=== PATIENT | male | born 1970 | race Caucasian/White ===

== ENCOUNTER 2017-09-12 07:52 | Inpatient (IN) ==
[2017-09-12 08:39] LABS: Bilirubin,Urine Negative (Negative); Blood,Urine Small (Negative); Clarity,Urine Clear (Clear); Color,Urine Yellow (Yellow); Glucose,Urine (UA) 500 mg/dL (Normal); Ketones,Urine Negative (Negative); Leukocyte Esterase,Urine Negative (Negative); Nitrite,Urine Negative (Negative); PH,Urine 5.5 pH Units (5.0-8.0); Protein,Urine Negative (Neg-Trace); Specific Gravity,Urine 1.023 (1.010-1.025); Urobilinogen,Urine Normal (Normal)
[2017-09-12 08:41] LABS: Bacteria,Urine None Seen per hpf (None-Few); Hyaline Casts,Urine None Seen per lpf (None-Few); Squamous Epithelial Cell,Urine Few per lpf (None-Few); WBC,Urine 0-3 per hpf (0-3)
[2017-09-12 08:46] LABS: Amphetamine Screen,Urine Positive ng/mL (Cutoff=1000); Barbiturate Screen,Urine Negative ng/mL (Cutoff=200); Benzodiazepines Screen,Urine Negative ng/mL (Cutoff=200); Cannabinoid Screen,Urine Positive ng/mL (Cutoff = 50); Cocaine Screen,Urine Negative ng/mL (Cutoff= 300); Opiate Screen,Urine Positive ng/mL (Cutoff=300); Phencyclidine Screen,Urine Negative ng/mL (Cutoff=25)
[2017-09-12 09:06] LABS: Basophils % 0.5 %; Eosinophils # 0.2 K/mcL (0.0-0.6); Hematocrit 42.7 % (37.5-50.1); Hemoglobin 14.4 g/dL (12.9-16.9); Immature Granulocytes % 0.1 % (0-4); Lymphocytes # 3.7 K/mcL (0.6-4.6); Lymphocytes % 43.6 %; Mean Corpuscular HGB Conc 33.7 g/dL (31.6-35.5); Mean Corpuscular Hemoglobin 28.9 pg (28.0-33.3); Mean Corpuscular Volume 85.6 fL (83.0-100.0); Mean Platelet Volume 8.9 fL (9.4-12.4); Monocytes # 0.6 K/mcL (0.0-1.3); Monocytes % 6.7 %; Platelet Count 199 K/mcL (140-400); Red Blood Count 4.99 M/mcL (4.19-5.50); Red Cell Distribution Width 12.3 % (11.5-14.5); Segmented Neutrophils % 47.1 %
[2017-09-12 09:21] LABS: Ethanol < 10 mg/dL (0-10); Salicylate < 5.0 mg/dL (15.0-30.0)
[2017-09-12 09:25] LABS: BUN/Creatinine Ratio 20 (6-26); Blood Urea Nitrogen 14 mg/dL (6-20); Calcium 8.9 mg/dL (8.6-10.3); Carbon Dioxide 28 mEq/L (23-29); Chloride 103 mEq/L (98-107); Glucose 110 mg/dL (70-105); Osmolality,Calculated 281 (280-300); Potassium 3.5 mEq/L (3.5-5.1); Sodium 135 mEq/L (136-145); eGFR For African Americans > 60 (> 60); eGFR For Non-African Americans > 60 (> 60)
--- NOTE | 2017-09-12 09:38 | Emergency Department Note ---
Disposition Clinical Impression: Suicidal ideation Disposition: Admitted As Inpatient Condition: Fair Time of Disposition: 13:16 Psych HPI - General Chief Complaint: ED Psychiatric Symptoms Stated Complaint: SI Time Seen by Provider: 09/12/17 08:23 Source: patient Nursing Notes Reviewed: Yes Vital Signs Reviewed: Yes - History of Present Illness HPI Narrative: Patient does have suicidal ideations and a plan was is to put a plan of his mouth and kill himself. He has put a gun under his chin and also in his mouth but is not the trigger. He has contemplated suicide intermittently through his whole life this is been worse the last several months. He does not have visual or auditory hallucinations. No homicidal ideation. Does have a history of polysubstance abuse. Alcohol is in the past but is no longer drinking. Social history: Smoker - Related Data Home Medications Medication Instructions Recorded Confirmed Aspirin [Lo-Dose Aspirin EC] 81 mg PO DAILY 09/12/17 09/12/17 DULoxetine [Cymbalta] 60 mg PO DAILY 09/12/17 09/12/17 Gabapentin [Neurontin] 1 cap PO QID 09/12/17 09/12/17 Ibuprofen [Motrin] 1 tab PO QID 09/12/17 09/12/17 Lisinopril [Zestril] 20 mg PO DAILY 09/12/17 09/12/17 NIFEdipine [Adalat cc] 90 mg PO DAILY 09/12/17 09/12/17 Nortriptyline [Pamelor] 25 mg PO DAILY 09/12/17 09/12/17 [place]-3/Dha/Epa/Fish Oil [Fish Oil 1,000 cap PO TID 09/12/17 09/12/17 1,000 mg Softgel] OxyCODONE/APAP 10/325 [Percocet 1 tab PO TID PRN 09/12/17 09/12/17 10/325 MG] Simvastatin [Zocor] 40 mg PO DAILY 09/12/17 09/12/17 cloNIDine HCl [CloNIDine HCl] 0.1 mg PO BID 09/12/17 09/12/17 clonazePAM [Clonazepam] 0.5 mg PO BID 09/12/17 09/12/17 Allergies Allergy/AdvReac Type Severity Reaction Status Date / Time diltiazem [From Cardizem] Allergy Anaphylaxis Verified 09/12/17 08:16 codeine AdvReac Gastrointestinal Verified 09/12/17 08:16 Upset hydrocodone AdvReac Itching Verified 09/12/17 08:16 Review of Systems: Constitutional: No fever Vision: No blurred vision ENT: No rhinorrhea Respiratory: No cough Allergic: No allergies : No blood in urine GI: No blood in stool Hematologic: No bruising Dermatologic: No skin rash Musculoskeletal: No pain in the extremities Neuro: No numbness of the extremities Past Medical History - Past Medical History Medical history: Reports: hyperlipidemia, hypertension Psychiatric history: Reports: anxiety, depression, panic disorder - Social History Smoking Status: Current every day smoker Smokeless Tobacco Status: No Alcohol use: Reports: rarely Drug use: Reports: cocaine, marijuana, methamphetamine Physical Exam CONSTITUTIONAL: Alert and oriented X3, well-nourished, well appearing, in no apparent distress HEAD: Normocephalic; atraumatic. EYES: PERRL, no scleral icterus. NOSE: The nose is normal in appearance without rhinorrhea RESP: Normal chest excursion with respiration; breath sounds clear and equal bilaterally; no wheezes, rhonchi, or rales CARD: Regular rhythm, without murmurs, rub or gallop ABD: Non-distended; non-tender, soft,without rigidity, rebound or guarding SKIN: Normal for age and race; warm and dry; no apparent lesions - General Limitations: no limitations General appearance: alert Course Vital Signs Temperature 98.0 F 09/12/17 08:09 Pulse Rate 85 09/12/17 08:09 Respiratory Rate 18 09/12/17 08:09 Blood Pressure 125/75 09/12/17 08:09 O2 Sat by Pulse Oximetry 97 09/12/17 08:09 Temperature 98.0 F 09/12/17 08:09 Pulse Rate 85 09/12/17 08:35 Respiratory Rate 18 09/12/17 08:35 Blood Pressure 125/75 09/12/17 08:35 O2 Sat by Pulse Oximetry 97 09/12/17 08:35 Oxygen Delivery Oxygen Delivery Room Air Psych - MDM Narrative Medical decision making narrative: I did order the psychiatric labs and the patient will be seen by the psychiatric services here 0937 Patient has been accepted for admission. I have reviewed the labs. 1316 - Lab Data Lab results reviewed: Yes I reviewed the patient's lab results. Result diagrams: 09/12/17 08:56 09/12/17 08:56 Lab Results 09/12/17 09/12/17 09/12/17 Range/Units 08:05 08:34 08:56 WBC 8.5 (4.3-11.1) K/mcL RBC 4.99 (4.19-5.50) M/mcL Hgb 14.4 (12.9-16.9) g/dL Hct 42.7 (37.5-50.1) % MCV 85.6 (83.0-100.0) fL MCH 28.9 (28.0-33.3) pg MCHC 33.7 (31.6-35.5) g/dL RDW 12.3 (11.5-14.5) % Plt Count 199 (140-400) K/mcL MPV 8.9 L (9.4-12.4) fL Immature Gran % 0.1 (0-4) % Seg Neutrophils % 47.1 % Lymphocytes % 43.6 % Monocytes % 6.7 % Eosinophils % 2.0 % Basophils % 0.5 % Neutrophils # 4.0 (1.6-8.9) K/mcL Lymphocytes # 3.7 (0.6-4.6) K/mcL Monocytes # 0.6 (0.0-1.3) K/mcL Eosinophils # 0.2 (0.0-0.6) K/mcL Basophils # 0.0 (0.0-0.2) K/mcL Sodium (136-145) mEq/L Potassium (3.5-5.1) mEq/L Chloride (98-107) mEq/L Carbon Dioxide (23-29) mEq/L BUN (6-20) mg/dL Creatinine (0.70-1.30) mg/dL Est GFR ( Amer) (> 60) Est GFR (Non-Af Amer) (> 60) BUN/Creatinine Ratio (6-26) Glucose (70-105) mg/dL Calculated Osmolality (280-300) Calcium (8.6-10.3) mg/dL Urine Color Yellow (Yellow) Urine Clarity Clear (Clear) Urine pH 5.5 (5.0-8.0) pH Units Ur Specific [place] 1.023 (1.010-1.025) Urine Protein Negative (Neg-Trace) mg/dL Urine Glucose (UA) 500 H (Normal) mg/dL Urine Ketones Negative (Negative) mg/dL Urine Blood Small H (Negative) Urine Nitrite Negative (Negative) Urine Bilirubin Negative (Negative) Urine Urobilinogen Normal (Normal) mg/dL Ur Leukocyte Esterase Negative (Negative) Urine Microscopic RBC 5-15 H (0-3) per hpf Urine Microscopic WBC 0-3 (0-3) per hpf Ur Squamous Epith Cells Few (None-Few) per lpf Urine Bacteria None Seen (None-Few) per hpf Hyaline Casts None Seen (None-Few) per lpf Salicylates (15.0-30.0) mg/dL Urine Opiates Screen Positive H (Cionuu=737) ng/mL Acetaminophen (10-30) mcg/mL Ur Barbiturates Screen Negative (Jhbmxb=939) ng/mL Ur Phencyclidine Scrn Negative (Cutoff=25) ng/mL Ur Amphetamines Screen Positive H (Busopl=3505) ng/mL U Benzodiazepines Scrn Negative (Loubpj=528) ng/mL Urine Cocaine Screen Negative (Cutoff= 300) ng/mL U Marijuana (THC) Screen Positive H (Cutoff = 50) ng/mL Ethyl Alcohol (0-10) mg/dL 09/12/17 Range/Units 08:56 WBC (4.3-11.1) K/mcL RBC (4.19-5.50) M/mcL Hgb (12.9-16.9) g/dL Hct (37.5-50.1) % MCV (83.0-100.0) fL MCH (28.0-33.3) pg MCHC (31.6-35.5) g/dL RDW (11.5-14.5) % Plt Count (140-400) K/mcL MPV (9.4-12.4) fL Immature Gran % (0-4) % Seg Neutrophils % % Lymphocytes % % Monocytes % % Eosinophils % % Basophils % % Neutrophils # (1.6-8.9) K/mcL Lymphocytes # (0.6-4.6) K/mcL Monocytes # (0.0-1.3) K/mcL Eosinophils # (0.0-0.6) K/mcL Basophils # (0.0-0.2) K/mcL Sodium 135 L (136-145) mEq/L Potassium 3.5 (3.5-5.1) mEq/L Chloride 103 (98-107) mEq/L Carbon Dioxide 28 (23-29) mEq/L BUN 14 (6-20) mg/dL Creatinine 0.69 L (0.70-1.30) mg/dL Est GFR ( Amer) > 60 (> 60) Est GFR (Non-Af Amer) > 60 (> 60) BUN/Creatinine Ratio 20 (6-26) Glucose 110 H (70-105) mg/dL Calculated Osmolality 281 (280-300) Calcium 8.9 (8.6-10.3) mg/dL Urine Color (Yellow) Urine Clarity (Clear) Urine pH (5.0-8.0) pH Units Ur Specific [place] (1.010-1.025) Urine Protein (Neg-Trace) mg/dL Urine Glucose (UA) (Normal) mg/dL Urine Ketones (Negative) mg/dL Urine Blood (Negative) Urine Nitrite (Negative) Urine Bilirubin (Negative) Urine Urobilinogen (Normal) mg/dL Ur Leukocyte Esterase (Negative) Urine Microscopic RBC (0-3) per hpf Urine Microscopic WBC (0-3) per hpf Ur Squamous Epith Cells (None-Few) per lpf Urine Bacteria (None-Few) per hpf Hyaline Casts (None-Few) per lpf Salicylates < 5.0 L (15.0-30.0) mg/dL Urine Opiates Screen (Fhhiqi=893) ng/mL Acetaminophen 1.0 L (10-30) mcg/mL Ur Barbiturates Screen (Qriuxf=901) ng/mL Ur Phencyclidine Scrn (Cutoff=25) ng/mL Ur Amphetamines Screen (Viaajj=2891) ng/mL U Benzodiazepines Scrn (Jqnjzd=901) ng/mL Urine Cocaine Screen (Cutoff= 300) ng/mL U Marijuana (THC) Screen (Cutoff = 50) ng/mL Ethyl Alcohol < 10 (0-10) mg/dL Psychiatric Medical Clearance - Medical Clearance Checklist Medical History: No Social History Section defined Current Vitals: Last Vital Signs Temp 98.0 F 09/12/17 08:09 Pulse 85 09/12/17 08:35 Resp 18 09/12/17 08:35 BP 125/75 09/12/17 08:35 Pulse Ox 97 09/12/17 08:35 Psychiatric Lab Panel: Drug Levels and Toxicity 09/12/17 09/12/17 08:05 08:56 Urine Opiates Screen Positive H Acetaminophen 1.0 L Ur Barbiturates Screen Negative Ur Phencyclidine Scrn Negative Ur Amphetamines Screen Positive H U Benzodiazepines Scrn Negative Urine Cocaine Screen Negative U Marijuana (THC) Screen Positive H Ethyl Alcohol < 10 Abnormal Labs: Abnormal lab results MPV 8.9 fL (9.4-12.4) L 09/12/17 08:56 Sodium 135 mEq/L (136-145) L 09/12/17 08:56 Creatinine 0.69 mg/dL (0.70-1.30) L 09/12/17 08:56 Glucose 110 mg/dL (70-105) H 09/12/17 08:56 Urine Glucose (UA) 500 mg/dL (Normal) H 09/12/17 08:34 Urine Blood Small (Negative) H 09/12/17 08:34 Urine Microscopic RBC 5-15 per hpf (0-3) H 09/12/17 08:34 Salicylates < 5.0 mg/dL (15.0-30.0) L 09/12/17 08:56 Urine Opiates Screen Positive ng/mL (Juurxq=901) H 09/12/17 08:05 Acetaminophen 1.0 mcg/mL (10-30) L 09/12/17 08:56 Ur Amphetamines Screen Positive ng/mL (Dyexfu=9149) H 09/12/17 08:05 U Marijuana (THC) Screen Positive ng/mL (Cutoff = 50) H 09/12/17 08:05 Statement of Medical Clearance: I have evaluated the patient, reviewed diagnostic information, and certify that the patient's medical condition is sufficiently stable that transfer to the psychiatric unit does not pose a significant risk of deterioration.
[2017-09-12] MEDS ORDERED: Haloperidol Lactate 5 MG/ML VIAL IM PRN (13:51)
[2017-09-12] MEDS ORDERED: MOM Conc 10 ML UD.LIQ PO PRN (13:51)
[2017-09-12] MEDS ORDERED: Mag Hydrox/Al Hydrox/Simeth 30 ML UDC PO PRN (13:51)
[2017-09-12] MEDS ORDERED: *HR* LORazepam 1 MG TABLET PO PRN (13:51)
[2017-09-12] MEDS ORDERED: *HR* LORazepam 2 MG/ML VIAL IM PRN (13:51)
[2017-09-12] MEDS: clonazePAM 0.5 MG TABLET PO SCH ×2 (15:40→21:54)
[2017-09-12] MEDS: Aspirin Enteric Coated 81 MG Tablet PO SCH (15:41)
[2017-09-12] MEDS: (Omega-3/Dha/Epa/Fish Oil [Fish Oil 1,000 Mg Softgel] PO SCH ×2 (15:42→22:10)
[2017-09-12] MEDS: Ibuprofen 600 MG TABLET PO SCH ×2 (16:49→21:53)
[2017-09-12] MEDS: Gabapentin 400 MG CAPSULE PO SCH ×2 (16:50→21:54)
[2017-09-12] MEDS: Nicotine 2 MG GUM BC PRN (20:49)
[2017-09-12] MEDS ORDERED: *HR* OxyCODONE/APAP 10/325 TABLET PO PRN (21:00)
[2017-09-12] MEDS: cloNIDine HCl 0.1 MG TABLET PO SCH (21:54)
[2017-09-13] MEDS: hydrOXYzine pamoate 25 MG CAPSULE PO PRN ×2 (00:13→21:23)
[2017-09-13] MEDS: Aspirin Enteric Coated 81 MG Tablet PO SCH (09:10)
[2017-09-13] MEDS: cloNIDine HCl 0.1 MG TABLET PO SCH ×2 (09:11→21:23)
[2017-09-13] MEDS: Ibuprofen 600 MG TABLET PO SCH ×4 (09:11→21:23)
[2017-09-13] MEDS: clonazePAM 0.5 MG TABLET PO SCH ×2 (09:11→21:22)
[2017-09-13] MEDS: Gabapentin 400 MG CAPSULE PO SCH ×4 (09:13→21:23)
[2017-09-13] MEDS: Lisinopril 20 MG TABLET PO SCH (09:14)
[2017-09-13] MEDS: NIFEdipine XL (24 HR) 30 MG TAB.ER.24 PO SCH (09:15)
[2017-09-13] MEDS: Nicotine 2 MG GUM BC PRN ×3 (09:15→21:26)
[2017-09-13] MEDS: (Omega-3/Dha/Epa/Fish Oil [Fish Oil 1,000 Mg Softgel] PO SCH ×3 (09:23→23:13)
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
[2017-09-13] MEDS: *HR* OxyCODONE/APAP 5/325 TABLET PO PRN (22:03)
[2017-09-14] MEDS: cloNIDine HCl 0.1 MG TABLET PO SCH ×2 (08:47→20:48)
[2017-09-14] MEDS: clonazePAM 0.5 MG TABLET PO SCH (08:47)
[2017-09-14] MEDS: Ibuprofen 600 MG TABLET PO SCH ×4 (08:47→20:45)
[2017-09-14] MEDS: Gabapentin 400 MG CAPSULE PO SCH ×4 (08:47→20:47)
[2017-09-14] MEDS: Aspirin Enteric Coated 81 MG Tablet PO SCH (08:47)
[2017-09-14] MEDS: Lisinopril 20 MG TABLET PO SCH (08:48)
[2017-09-14] MEDS: NIFEdipine XL (24 HR) 30 MG TAB.ER.24 PO SCH (08:48)
[2017-09-14] MEDS: (Omega-3/Dha/Epa/Fish Oil [Fish Oil 1,000 Mg Softgel] PO SCH ×3 (08:50→20:59)
[2017-09-14] MEDS: Nicotine 2 MG GUM BC PRN ×3 (08:51→20:48)
[2017-09-14] MEDS: *HR* OxyCODONE/APAP 5/325 TABLET PO PRN (10:59)
--- NOTE | 2017-09-14 16:56 | Psychiatry Progress Note ---
Date of Encounter: 09/14/17 Time of Encounter: 17:00 Subjective Interval history: The patient says that he liked to go home tomorrow been tolerating the sertraline he had some sedation from Pamelor and he is having some reduction in other medicines for anxiety. Nonetheless the patient is shown improvement and is having improvement in anger. He had a good visit with his significant other yesterday he is making a list of things that he wants to do including following up at [facility] Review of Systems Psychiatric: Reports: depression, irritability, panic attacks Objective: Exam Level of alertness: Alert Patient appearance: Appropriate Behavior: cooperative Psychomotor activity: Normal Eye contact: Fleeting Contact Mood description: Irritable Affect description: dysphoric Speech pattern: Normal rate Speech volume: Normal Thought process: Logical, Tangential Thought content: Yes Intact Judgment: Fair Insight: Partial Results - Vital Signs Vital Signs: Temp Pulse Resp BP Pulse Ox 97.0 F L 61 16 118/70 97 09/14/17 08:44 09/14/17 08:44 09/14/17 08:44 09/14/17 08:44 09/12/17 08:35 Assessment and Plan (1) Major depressive disorder, single episode, severe without psychotic features Current visit: Yes Status: Acute Plan: Continue hospitalization, Suicide Precautions per unit protocol Additional Plan: sertraline 50 mg qam Risks, benefits, side effects, alternatives discussed w/pt: Yes Patient agreeable to treatment: Yes (2) Other stimulant abuse, uncomplicated Current visit: Yes Status: Acute Plan: Continue hospitalization, Family/Supportive other meeting Risks, benefits, side effects, alternatives discussed w/pt: Yes Patient agreeable to treatment: Yes (3) Cannabis abuse, uncomplicated Current visit: Yes Status: Acute Additional Plan: taper opioids and benzodiazepines Risks, benefits, side effects, alternatives discussed w/pt: Yes Patient agreeable to treatment: Yes (4) Tobacco use Current visit: Yes Status: Acute Risks, benefits, side effects, alternatives discussed w/pt: Yes Patient agreeable to treatment: Yes (5) Adverse effect of antidepressant drug Current visit: Yes Status: Acute Risks, benefits, side effects, alternatives discussed w/pt: Yes Patient agreeable to treatment: Yes Qualifiers: Encounter type: initial encounter Qualified Code(s): T43.205A - Adverse effect of unspecified antidepressants, initial encounter Consult Discharge Plan - Plan Referrals: NONE,PCP [Primary Care Provider] - Able-Odilia Head, DO [Family Provider] -
[2017-09-14] MEDS ORDERED: clonazePAM 0.5 MG TABLET PO PRN (17:07)
[2017-09-14] MEDS ORDERED: *HR* OxyCODONE/APAP 5/325 TABLET PO PRN (17:09)
[2017-09-14] MEDS: hydrOXYzine pamoate 25 MG CAPSULE PO PRN (20:48)
[2017-09-15] MEDS: *HR* OxyCODONE/APAP 5/325 TABLET PO PRN (02:25)
[2017-09-15] MEDS: Gabapentin 400 MG CAPSULE PO SCH ×4 (09:23→21:04)
[2017-09-15] MEDS: Lisinopril 20 MG TABLET PO SCH (09:23)
[2017-09-15] MEDS: cloNIDine HCl 0.1 MG TABLET PO SCH ×2 (09:23→21:04)
[2017-09-15] MEDS: Aspirin Enteric Coated 81 MG Tablet PO SCH (09:23)
[2017-09-15] MEDS: Ibuprofen 600 MG TABLET PO SCH ×4 (09:23→21:03)
[2017-09-15] MEDS: (Omega-3/Dha/Epa/Fish Oil [Fish Oil 1,000 Mg Softgel] PO SCH ×3 (09:24→21:33)
[2017-09-15] MEDS: NIFEdipine XL (24 HR) 30 MG TAB.ER.24 PO SCH (10:38)
[2017-09-15] MEDS: Nicotine 2 MG GUM BC PRN (10:53)
--- NOTE | 2017-09-15 13:00 | Psychiatry Progress Note ---
Date of Encounter: 09/15/17 Time of Encounter: 12:45 Subjective Interval history: Patient reports to me today "I feel a lot better than what I was when I came in here". He started taking Zoloft and he denies any adverse side effects. His Cymbalta was discontinued. He knowledges his drug use, using methamphetamine for the past month. He states that while using it he was having suicidal thoughts. On the day prior to coming in to [facility], his suicidal thoughts had increased. He denies any suicidal thoughts now. He states that he was feeling anxious on the methamphetamine but is no longer feeling that. He states that he feels better to being off the Cymbalta. He found after the Cymbalta was started, he had an increase in his anxiety also. He states that he was feeling angry and irritable, but that is getting better. He has talked to his girlfriend and stated that they are having issues secondary to his drug use, but since he is not going to use amphetamines anymore, that issue is improved and is resolving. He denies any mood instability at this time. He denies any auditory or visual hallucinations or paranoid delusions. He states his sleep is somewhat improved and his mood feels like it is getting back to normal. Acknowledges that he needs mental health counseling and will meet with the hospital social worker to set up outpatient follow-up. Review of Systems Psychiatric: Reports: depression, irritability, panic attacks Objective: Exam Patient orientation: Yes Person, Yes Time, Yes Place Level of alertness: Alert Patient appearance: Well-nourished, Unkempt Behavior: nervous Psychomotor activity: Normal Eye contact: Minimal Contact Mood description: Anxious Affect description: congruent with mood Speech pattern: Normal rate, Normal rhythm, Normal tone Speech volume: Normal Thought process: Linear Thought content: Yes Intact Judgment: Fair Insight: Partial Results - Vital Signs Vital Signs: Temp Pulse Resp BP Pulse Ox 97.8 F 54 16 107/67 97 09/15/17 08:51 09/15/17 08:51 09/15/17 08:51 09/15/17 08:51 09/12/17 08:35 Assessment and Plan (1) Major depressive disorder, single episode, severe without psychotic features Current visit: Yes Status: Acute Plan: Continue hospitalization, Close observation, Encourage participation in unit milieu, Group Therapy Risks, benefits, side effects, alternatives discussed w/pt: Yes (Zoloft) Patient agreeable to treatment: Yes (2) Amphetamine abuse, episodic Current visit: Yes Status: Acute Risks, benefits, side effects, alternatives discussed w/pt: Yes Patient agreeable to treatment: Yes Consult Discharge Plan - Plan Referrals: [facility] [Outside] - 09/22/17 10:45 am (The above appointment is with Pablo Galicia for outpatient mental health and substance abuse counseling services. You will also see Reema Becerra for outpatient psychiatric assessment and medication management services on 10/15/2017 at 1:00 PM.)
[2017-09-15] MEDS: Nicotine 21 MG PATCH.TD24 TD SCH (15:38)
[2017-09-15] MEDS: hydrOXYzine pamoate 25 MG CAPSULE PO PRN (21:03)
[2017-09-16] MEDS: *HR* OxyCODONE/APAP 5/325 TABLET PO PRN (03:22)
[2017-09-16] MEDS: Ibuprofen 600 MG TABLET PO SCH (08:13)
[2017-09-16] MEDS: NIFEdipine XL (24 HR) 30 MG TAB.ER.24 PO SCH (08:13)
[2017-09-16] MEDS: Gabapentin 400 MG CAPSULE PO SCH (08:14)
[2017-09-16] MEDS: Nicotine 21 MG PATCH.TD24 TD SCH (08:14)
[2017-09-16] MEDS: (Omega-3/Dha/Epa/Fish Oil [Fish Oil 1,000 Mg Softgel] PO SCH (08:14)
[2017-09-16] MEDS: Aspirin Enteric Coated 81 MG Tablet PO SCH (08:14)
[2017-09-16] MEDS: Lisinopril 20 MG TABLET PO SCH (08:14)
[2017-09-16] MEDS: cloNIDine HCl 0.1 MG TABLET PO SCH (08:14)
[2017-09-16 10:11] VITALS: BP 113/77
--- NOTE | 2017-09-16 11:03 | Discharge Summary ---
Date of Encounter: 09/16/17 Time of Encounter: 10:55 Diagnosis - Discharge Diagnosis (1) Major depressive disorder, single episode, severe without psychotic features Status: Acute (2) Amphetamine abuse, episodic Status: Acute Medications - Discharge Medications Prescriptions: Sertraline [Zoloft] 50 mg PO DAILY 30 Days #30 tablet Aspirin [Lo-Dose Aspirin EC] 81 mg PO DAILY 09/12/17 [History] Gabapentin [Neurontin] 1 cap PO QID 09/12/17 [History] Ibuprofen [Motrin] 1 tab PO QID 09/12/17 [History] Lisinopril [Zestril] 20 mg PO DAILY 09/12/17 [History] NIFEdipine [Adalat cc] 90 mg PO DAILY 09/12/17 [History] [place]-3/Dha/Epa/Fish Oil [Fish Oil 1,000 mg Softgel] 1,000 cap PO TID 09/12/17 [ History] OxyCODONE/APAP 10/325 [Percocet 10/325 MG] 1 tab PO TID PRN 09/12/17 [History] Simvastatin [Zocor] 40 mg PO DAILY 09/12/17 [History] cloNIDine HCl [CloNIDine HCl] 0.1 mg PO BID 09/12/17 [History] clonazePAM [Clonazepam] 0.5 mg PO BID 09/12/17 [History] Sertraline [Zoloft] 50 mg PO DAILY 30 Days #30 tablet 09/16/17 [Rx] 3 Allergy/AdvReac Type Severity Reaction Status Date / Time diltiazem [From Cardizem] Allergy Anaphylaxis Verified 09/12/17 08:16 codeine AdvReac Gastrointestinal Verified 09/12/17 08:16 Upset hydrocodone AdvReac Itching Verified 09/12/17 08:16 Provider Date of admission: 09/12/17 13:12 Primary care physician: PCP NONE Assessment and Plan - Patient/Caregiver Discharge Instructions Activity: resume usual activities as tolerated Diet: regular diet - Follow up Plan Follow up with: [facility] [Outside] - 09/22/17 10:45 am (The above appointment is with Pablo Galicia for outpatient mental health and substance abuse counseling services. You will also see Reema Becerra for outpatient psychiatric assessment and medication management services on 10/15/2017 at 1:00 PM.) Functional capacity at discharge: independent ambulation Overall status at discharge: Stable Disposition: Home, Self-Care Hospital Course Hospital course: Mr. Dubois is a 46 year old male who had been admitted to the psychiatric unit after evaluation for depression and thoughts of self-interest behavior. Patient had been admitted to the unit, evaluated was started on Zoloft 50 mg PO Q day. He was showing low mood, depressed and feeling helpless about his situation at home with drug use and his girlfriend that he was living with. Patient was positive for methamphetamine and acknowledged use of the drug. After being on the unit a couple days, his sleep regulated out. He was not going through withdrawal or showing any issue with mood instability. He denied any adverse side effects of Zoloft and stated he was feeling less depressed and less agitated. He wanted to stay on the Zoloft feeling it was helpful. He had been in contact with his girlfriend while on the unit. They talked about the ongoing issues they had. He stated that he was no longer going to use any drugs having only use the methamphetamine briefly. He saw what it did to alter his mood and cause issues with his living situation. He denied suicidal or homicidal ideation. He denied any auditory or visual hallucinations. His sleep improved to be within normal limits. He was eating fine. He is participating on the unit in groups and felt that he was stable to be discharged home. On the day of discharge, he discussed how he was feeling better and was no longer feeling depressed like he was. He still had issues to work out in his life, but stated that he was no longer going to use illicit drugs. He had concern over his girlfriend and the fact that she uses drugs sporadically and stated that "she may need to move out". He stated that there is no animosity between the two and they would be able work things out amicably. Patient's mood was stable, his thoughts were linear and logical. He showed no signs or thought of self-interest behavior nor behavior of a danger to anybody else. He was not at imminent risk to himself and others, nor gravely disabled. He had follow-up arranged in his community to continue medications and get therapy. He was discharged in stable condition. Time spent discussing smoking cessation with patient: 3 to 10 minutes Does patient wish to continue nicotine replacement upon disc: No - Time Spent with Patient Total time spent providing and/or coordinating discharge services:20 min Less than 30 minutes Quality - Multiple Antipsychotics Patient discharged on 2 or more antipsychotic medications: No Procedures - Procedures Procedures: Medication Management, Crisis Stabilization, Supportive Therapy, Group Therapy, Psychoeducational Therapy Mental Status Exam - Mental Status Exam Patient orientation: Yes Person, Yes Time, Yes Place, Yes Circumstance Level of alertness: Alert Patient appearance: Appropriate, Well-nourished Behavior: calm Psychomotor activity: Normal Eye contact: Maintains Eye Contact Mood description: Euthymic/stable Affect description: congruent with mood Speech pattern: Normal rate, Normal rhythm, Normal tone, Appropriate Speech Volume: Normal Thought process: Intact, Linear, Goal Oriented Thought Content: Yes Intact Judgment: Fair Insight: Partial
== END 2017-09-16 12:25 | disposition home or self-care (01) | DRG 751 ==
LOC: EMEROO 07:52 → SUATTDRO 13:12 → 1ANU 13:12
PROVIDERS: ADMIT Psychiatry & Neurology Forensic Psychiatry; ATTEND Psychiatry & Neurology Psychiatry